=== PATIENT | female | born 1990 | race Caucasian/White ===

== ENCOUNTER 2016-04-17 12:25 | Emergency (ER) | payer MEDICAID ==
[~2016-04-17] VITALS: Ht 170.2 cm; Wt 88.0 kg
[~2016-04-17 12:25] MED LIST: PRENCAP17 PO
[2016-04-17 12:47] VITALS: BP 126/83; PULSE 107; RESP 16; TEMP 98.7; O2SAT 98
[2016-05-26] MEDS ORDERED: ZOLO50TA PO (11:18)
[2016-05-26] MEDS ORDERED: SERT-132 PO (11:18)
== END 2016-04-17 13:30 | disposition left against medical advice (07) ==
LOC: PHED 12:25
DX: O26.893 Other specified pregnancy related conditions, third trimester (principal); R10.30 Lower abdominal pain, unspecified; Z3A.36 36 weeks gestation of pregnancy; Z53.21 Procedure and treatment not carried out due to patient leaving prior to being seen by health care provider
CPT/HCPCS: 99281

== ENCOUNTER 2016-04-17 14:03 | Emergency (ER) | payer MEDICAID ==
--- NOTE | 2016-04-17 14:40 | PD ---
HPI Chief Complaint cramping Date Seen: Apr 17, 2016 Travel History International Travel<30 Days: No Contact w/Intl Traveler<30Days: No Known Affected Area: No History of Present Illness HPI 25yo at 36 weeks gestation c/o pelvic cramping. Irregular, since this morning, mild, better when decreases activity Para: 0 : 1 History Past Medical History Medical History: Denies Significant Hx Past Surgical History Surgical History: No Previous Surgery Family History Family History: Negative Social History Alcohol Use: No Tobacco Use: Yes (stopped in first trimester) Substance Abuse: No Allergies-Medications (Allergen,Severity, Reaction): Coded Allergies: Nonsteroidal Anti-Inflammatory Agts (Verified Allergy, Unknown, 04/13/16) Home Meds Reported Medications Without A W/ Fe Carbo (Prenate Mini 29-0.6-0.4-350 mg)1 Cap Cap Po 02/15/16 Review of Systems Except as stated in HPI: all other systems reviewed are Neg Physical Exam Narrative GENERAL: Well-nourished, well-developed patient. SKIN: Warm and dry. HEAD: Normocephalic and atraumatic. EYES: No scleral icterus. No injection or drainage. ENT: No nasal drainage noted. Mucous membranes pink. Airway patent. NECK: Supple, trachea midline. No JVD. CARDIOVASCULAR: Regular rate and rhythm without murmurs, gallops, or rubs. RESPIRATORY: Breath sounds equal bilaterally. No accessory muscle use. BREASTS: Bilateral exam showed no masses , no retractions, no nipple discharge. ABDOMEN/GI: Abdomen soft, non-tender, bowel sounds present, no rebound, no guarding Gravid to [-] weeks size Fundal Height: [-]36 GENITOURINARY: External Genitalia: intact and normal in appearance BUS glands: [-] Cervix: [-]posterior Dilatation: [-] closed Effacement: [-]50 Station: [-] -3 Presentation: [-]vertex Membranes: [intact or ruptured]intact Uterine Contractions: [-]none per toco FHT's: Category: [-] 1 Baseline: [-] 145 Reactive: [-] mod Variability: [-] mod, accels present Decels: [-] absent EXTREMITIES: No cyanosis or edema. BACK: Nontender without obvious deformity. No CVA tenderness. NEUROLOGICAL: Awake and alert. Motor and sensory grossly within normal limits. Five out of 5 muscle strength in all muscle groups. Normal speech. Data Data Vital Signs Reviewed: Yes MDM Plan false labor, pelvic pressure follow up as directed in 2 days Diagnosis Diagnosis: Primary Impression: False labor before 37 completed weeks of gestation during in third trimester, antepartum Additional Impression: 36 weeks gestation of Disposition: 01 DISCHARGE HOME Poly Chery MD Apr 17, 2016 14:40
[2016-05-26] MEDS ORDERED: ZOLO50TA PO (11:18)
[2016-05-26] MEDS ORDERED: SERT-132 PO (11:18)
== END 2016-04-17 15:02 | disposition home or self-care (01) ==
LOC: HOBED 14:07
DX: O47.03 False labor before 37 completed weeks of gestation, third trimester (principal); Z3A.36 36 weeks gestation of pregnancy
CPT/HCPCS: 59025

== ENCOUNTER 2016-05-03 12:58 | Emergency (ER) | payer MEDICAID ==
[2016-05-03 13:24] VITALS: BP 125/77; PULSE 85; RESP 20; TEMP 98.2
[2016-05-03 14:02] LABS: BACTERIA, URINE RARE /hpf; BLOOD, URINE NEG (NEG); COMMENT (UR) CULT NOT INDICATED; CULTURE IF INDICATED CULT NOT INDICATED; GLUCOSE,URINE NEG (NEG); KETONE, URINE NEG (NEG); MUCUS URINE FEW /lpf (OCC); NITRITE,URINE NEG (NEG); SQUAMOUS EPITHELIAL CELL URINE <1 /hpf (0-5); URINE COLOR YELLOW (YELLW/STRAW)
--- NOTE | 2016-05-03 14:27 | PD ---
HPI Chief Complaint Lower abdominal, lower back cramping Date Seen: May 03, 2016 Time Seen: 13:30 (Kimberlee Hoffman MD R1) Travel History International Travel<30 Days: No Contact w/Intl Traveler<30Days: No Known Affected Area: No (Kimberlee Hoffman MD R1) History of Present Illness HPI Patient is a 25-year-old at 38 and 2/7 weeks gestation today. She presents to the OB ED with lower back pain and lower abdominal pain radiating to the groin, starting at 9:30 today. She states they feel that contractions but the last 30 minutes at a time and are sporadic. Had 2-3 episodes today. She also endorses having a headache since Sunday, improved with Tylenol. She does not feel that she is hydrated is, stating she thinks 34 pints of water daily. Her headache persisted right now and is mild. Denies having chronic headaches or other medical conditions. She has had vomiting and poor sleep to some type . care has been per patient report uncomplicated. She denies leakage of fluid, vaginal bleeding, and contractions. She feels baby moving regularly. She denies FLOYD/N/V/D/fever/sick contacts/SOB/calf pain/ dizziness/seeing spots. She is a patient of [facility]. (Kimberlee Hoffman MD R1) History Past Medical History Medical History: Denies Significant Hx (Kimberlee Hoffman MD R1) Obstetric History Obstetric History G1: Elective 9 weeks by oral abortive medication G2: Present (Kimberlee Hoffman MD R1) Past Surgical History Surgical History: No Previous Surgery (Kimberlee Hoffman MD R1) Family History Family History: Negative (Kimberlee Hoffman MD R1) Social History Alcohol Use: No Tobacco Use: No (quit at 6 weeks gestation) Substance Abuse: No (Kimberlee Hoffman MD R1) Allergies-Medications (Allergen,Severity, Reaction): Coded Allergies: Nonsteroidal Anti-Inflammatory Agts (Verified Allergy, Severe, Hives, SOB , 05/01/16) Home Meds Reported Medications Without A W/ Fe Carbo (Prenate Mini 29-0.6-0.4-350 mg)1 Cap Cap Po 02/15/16 Review of Systems Except as stated in HPI: all other systems reviewed are Neg (Kimberlee Hoffman MD R1) Physical Exam Vital Signs Date Time Temp Pulse Resp B/P Pulse Ox O2 Delivery O2 Flow Rate FiO2 05/03/16 13:24 98.2 85 20 125/77 Narrative GENERAL: Well-nourished, well-developed patient. SKIN: Warm and dry. HEAD: Normocephalic and atraumatic. EYES: No scleral icterus. No injection or drainage. ENT: No nasal drainage noted. Mucous membranes pink. Airway patent. NECK: Supple, trachea midline. No JVD. CARDIOVASCULAR: Regular rate and rhythm without murmurs, gallops, or rubs. RESPIRATORY: Breath sounds equal bilaterally. No accessory muscle use. BREASTS: Bilateral exam showed no masses , no retractions, no nipple discharge. ABDOMEN/GI: Abdomen gravid to 38 weeks, non-tender, bowel sounds present, no rebound, no guarding GENITOURINARY: Cervix: 0-1/80%/-2 External Genitalia: intact and normal in appearance Uterine Contractions: Absent FHT's: Category: 1 Baseline: 130 Reactive: Yes Variability: Moderate Decels: Absent EXTREMITIES: No cyanosis or edema. BACK: Nontender without obvious deformity. No CVA tenderness. NEUROLOGICAL: Awake and alert. Motor and sensory grossly within normal limits. Five out of 5 muscle strength in all muscle groups. Normal speech. (Kimberlee Hoffman MD R1) Data Data Vital Signs Reviewed: Yes Orders Vital Signs (Adult) .ON ADMISSION (05/03/16 13:05) ^ Labor Status (05/03/16 13:05) Urinalysis - C+S If Indicated (05/03/16 13:05) ^ Hydration (05/03/16 13:05) Us Ob Bpp Wo Nst (05/03/16 ) Labs Laboratory Tests Test 05/03/16 13:10 Urine Color YELLOW Urine Turbidity CLEAR Urine pH 7.0 Urine Specific [place] 1.018 Urine Protein TRACE Urine Glucose (UA) NEG Urine Ketones NEG Urine Occult Blood NEG Urine Nitrite NEG Urine Bilirubin NEG Urine Urobilinogen LESS THAN 2.0 Urine Leukocyte Esterase SMALL Urine RBC 1 Urine WBC 1 Urine Squamous Epithelial <1 Cells Urine Bacteria RARE Urine Mucus FEW Microscopic Urinalysis Comment CULT NOT INDICATED (Kimberlee Hoffman MD R1) MDM Medical Record Reviewed: Yes Narrative Course / MDM 25-year-old at 38 and 2/7 weeks gestation today presenting for labor check. Intrauterine : Category 1 tracing Cervix: 0-1/80%/-2 Unofficial report for Ultrasound: BPP 12/12 Patient to be discharged home Counseled on use of Tylenol as needed for round ligament pain Continue routine care with [facility] Discussed with Dr. Oquendo (Kimberlee Hoffman MD R1) Diagnosis Diagnosis: Primary Impression: 38 weeks gestation of Additional Impression: Round ligament pain Disposition: DISCHARGE HOME Condition: Stable Patient Instructions: Abdominal Pain in (ED), General Instructions Addendum Remarks I rounded on the patient. I rounded with the resident. I reviewed the resident' s assessment and plan of care for this patient. I am in agreement with the plan of care for this patient. (Marleen Leon MD) Kimberlee Hoffman MD R1 May 03, 2016 14:27 Marleen Leon MD May 03, 2016 15:15
[2016-05-26] MEDS ORDERED: SERT-132 PO (11:18)
[2016-05-26] MEDS ORDERED: ZOLO50TA PO (11:18)
== END 2016-05-03 14:42 | disposition home or self-care (01) ==
LOC: HOBED 12:58
DX: O26.893 Other specified pregnancy related conditions, third trimester (principal); R10.2 Pelvic and perineal pain; M54.5 Low back pain; R51 Headache; Z87.891 Personal history of nicotine dependence; Z3A.38 38 weeks gestation of pregnancy
CPT/HCPCS: 76816; 76819; 81001

== ENCOUNTER 2016-05-07 19:09 | Emergency (ER) | payer MEDICAID ==
[~2016-05-07] VITALS: Ht 170.2 cm; Wt 88.5 kg
--- NOTE | 2016-05-07 19:54 | PD ---
HPI Chief Complaint Lower abdominal low back pain Date Seen: May 07, 2016 Travel History International Travel<30 Days: No Contact w/Intl Traveler<30Days: No Known Affected Area: No History of Present Illness HPI The patient is a 25 white female at 39 weeks tomorrow presents combining of lower abdominal pain and groin pain and low back pain no bleeding or leakage of fluid, heart rate tracing is reactive, no regular contractions seen just uterine irritability Para: 0 : 2 : 1 History Obstetric History Obstetric History 1 loss early Social History Alcohol Use: No Tobacco Use: No Substance Abuse: No Allergies-Medications (Allergen,Severity, Reaction): Coded Allergies: Nonsteroidal Anti-Inflammatory Agts (Verified Allergy, Severe, Hives, SOB , 05/01/16) Home Meds Reported Medications Without A W/ Fe Carbo (Prenate Mini 29-0.6-0.4-350 mg)1 Cap Cap Po 02/15/16 Review of Systems General / Constitutional: No: Fever, Weight Gain, Chills, Other Eyes: No: Diploplia, Blurred Vision, Visual changes, Pain, Photophobia HENT: No: Headaches, Vertigo, Lightheadedness Cardiovascular: No: Irregular Rhythm, Chest Pain or Discomfort, Palpitations, Tachycardia, Syncope, Varicosities, Edema, Cyanosis Respiratory: No: Cough, Short of Breath, Other Gastrointestinal: No: Nausea, Vomiting, Diarrhea Genitourinary: No: Decreased Urinary Output, Oliguria Musculoskeletal: No: Limited ROM, Weakness, Cramping, Edema, Pain Skin: No Rash, No Itching, No Dryness, No Lumps, No Change in Pigmentation, No Change in Nails, No Alopecia, No Lesions Neurologic: No: Weakness, Dizziness, Syncope, Focal Abnormalities, Coordination Problem, Headache, Slurred Speech, Seizures Psychiatric: No: Depression, Suicidal Ideations, Homicidal Ideation Endocrine: No: Heat Intolerance, Cold Intolerance, Polydipsia, Polyuria, Other Physical Exam Narrative GENERAL: Well-nourished, well-developed patient. SKIN: Warm and dry. HEAD: Normocephalic and atraumatic. EYES: No scleral icterus. No injection or drainage. ENT: No nasal drainage noted. Mucous membranes pink. Airway patent. NECK: Supple, trachea midline. No JVD. CARDIOVASCULAR: Regular rate and rhythm without murmurs, gallops, or rubs. RESPIRATORY: Breath sounds equal bilaterally. No accessory muscle use. BREASTS: Bilateral exam showed no masses , no retractions, no nipple discharge. ABDOMEN/GI: Abdomen soft, non-tender, bowel sounds present, no rebound, no guarding Gravid to [38-] weeks size Fundal Height: [38-] GENITOURINARY: External Genitalia: intact and normal in appearance BUS glands: [-] Cervix: [-] Dilatation: [1-] Effacement: [50-] Station: [-3] Presentation: [vtx-] Membranes: [intact ] Uterine Contractions: [ no contraction is just irritability-] FHT's: Category: [1-] Baseline: [-144] Reactive: [-yes] Variability: [-mod] Decels: [none-] EXTREMITIES: No cyanosis or edema. BACK: Nontender without obvious deformity. No CVA tenderness. NEUROLOGICAL: Awake and alert. Motor and sensory grossly within normal limits. Five out of 5 muscle strength in all muscle groups. Normal speech. Data Data Orders Meperidine Inj (Demerol Inj) (05/07/16 20:00) MDM Interpretation(s) Patient 25-year-old white female now at 39 weeks tomorrow presents complaining of lower abdominal pain and low back pain contractions bleeding or rupture the membranes heart rate tracing is reactive and there are no regular contractions she is uterine irritability , cervix is fingertip to 1 cm 50% posterior Plan Plan to give patient Demerol 50 mg with 5 mg of Phenergan IM pain relief home bedrest use Tylenol liberally drink plenty of fluids stay in bed using a heating pad on the painful areas are soak in hot bath, and follow-up with her OB provider [facility] Diagnosis Diagnosis: Primary Impression: Round ligament pain Disposition: 01 DISCHARGE HOME Condition: Stable Gideon Blanco II, MD May 07, 2016 19:54
[2016-05-07] MEDS ORDERED: MEPERIDINE HCL 50 MG/ML VIAL IM ONE (20:00)
[2016-05-07] MEDS ORDERED: PROMETHAZINE INJ 25 MG/ML VIAL IM ONE (20:00)
[2016-05-26] MEDS ORDERED: SERT-132 PO (11:18)
[2016-05-26] MEDS ORDERED: ZOLO50TA PO (11:18)
== END 2016-05-07 20:30 | disposition home or self-care (01) ==
LOC: HOBED 19:09
DX: O26.893 Other specified pregnancy related conditions, third trimester (principal); R10.2 Pelvic and perineal pain; Z3A.39 39 weeks gestation of pregnancy
CPT/HCPCS: 59025; 96372; 99284; J2175; J2550

== ENCOUNTER 2016-05-10 12:13 | Emergency (ER) | payer MEDICAID ==
--- NOTE | 2016-05-10 13:10 | PD ---
HPI Chief Complaint Bloody vaginal discharge this morning Date Seen: May 10, 2016 Time Seen: 13:06 Travel History International Travel<30 Days: No Contact w/Intl Traveler<30Days: No Known Affected Area: No History of Present Illness HPI 25-year-old white female who is at 39 weeks 2 days and the patient of [facility]. Patient denies any medical or surgical issues during this and she was checked yesterday. Cervix was 2 cm on exam yesterday and she woke up this morning with mucousy discharge with some blood in it. Patient denies abdominal pain she denies bright red blood vaginal bleeding. Para: 0 : 1 History Past Medical History Medical History: Denies Significant Hx Past Surgical History Surgical History: No Previous Surgery Family History Family History: Negative Social History Alcohol Use: No Tobacco Use: No Substance Abuse: No Allergies-Medications (Allergen,Severity, Reaction): Coded Allergies: Nonsteroidal Anti-Inflammatory Agts (Verified Allergy, Severe, Hives, SOB , 05/09/16) Home Meds Reported Medications Without A W/ Fe Carbo (Prenate Mini 29-0.6-0.4-350 mg)1 Cap Cap Po 02/15/16 Review of Systems Except as stated in HPI: all other systems reviewed are Neg Physical Exam Narrative GENERAL: Well-nourished, well-developed patient. SKIN: Warm and dry. HEAD: Normocephalic and atraumatic. EYES: No scleral icterus. No injection or drainage. ENT: No nasal drainage noted. Mucous membranes pink. Airway patent. NECK: Supple, trachea midline. No JVD. CARDIOVASCULAR: Regular rate and rhythm without murmurs, gallops, or rubs. RESPIRATORY: Breath sounds equal bilaterally. No accessory muscle use. BREASTS: Bilateral exam showed no masses , no retractions, no nipple discharge. ABDOMEN/GI: Abdomen soft, non-tender, bowel sounds present, no rebound, no guarding Gravid to [-38] weeks size Fundal Height: [-] GENITOURINARY: External Genitalia: intact and normal in appearance BUS glands: [-] Cervix: [-Posterior] Dilatation: [-2] Effacement: [50-] Station: [--3] Presentation: [-Vertex] Membranes: [intact or ruptured] Uterine Contractions: [-Occasional] FHT's: Category: [-1] Baseline: [140 reactive-] Reactive: [-] Variability: [-Moderate] Decels: [Absent-] EXTREMITIES: No cyanosis or edema. BACK: Nontender without obvious deformity. No CVA tenderness. NEUROLOGICAL: Awake and alert. Motor and sensory grossly within normal limits. Five out of 5 muscle strength in all muscle groups. Normal speech. MDM Medical Record Reviewed: No Plan 25-year-old at 39 weeks gestation who has some mild bloody show noted on examination. No signs of labor and no contractions on exam. No signs of bright red vaginal bleeding. Patient will be discharged and can follow back up with her provider next week Diagnosis Diagnosis: Primary Impression: Bloody vaginal discharge Additional Impression: 39 weeks gestation of Disposition: DISCHARGE HOME Poly Chery MD May 10, 2016 13:10
[2016-05-26] MEDS ORDERED: ZOLO50TA PO (11:18)
[2016-05-26] MEDS ORDERED: SERT-132 PO (11:18)
== END 2016-05-10 15:38 | disposition home or self-care (01) ==
LOC: HOBED 12:13
DX: N89.8 Other specified noninflammatory disorders of vagina (principal); O26.93 Pregnancy related conditions, unspecified, third trimester; Z3A.39 39 weeks gestation of pregnancy
CPT/HCPCS: 99283

== ENCOUNTER 2016-05-14 01:02 | Inpatient (IN) | payer MEDICAID ==
[~2016-05-14] VITALS: Ht 170.2 cm; Wt 90.0 kg
[2016-05-14] VITALS (54 sets, daily range): BP systolic 95–153; BP diastolic 46–88; PULSE 60–94; RESP 15–20; TEMP 97.8–98.1
--- NOTE | 2016-05-14 01:36 | PD ---
HPI Chief Complaint contractions Date Seen: May 14, 2016 Travel History International Travel<30 Days: No Contact w/Intl Traveler<30Days: No Known Affected Area: No History of Present Illness HPI Ms. Israel is a 25 yo G1 at an estimated 39 6/7 weeks (JOO 05/15/2016) presents with complaint of contractions. Patient states the contractions started approximately 1.5 hours ago; due to the severity of her pain and the advice of family members she saw emergency services and was brought by [facility] to [facility] ED. Patient denies vaginal bleeding or known loss of vaginal fluid. Patient states contractions approximately 2 minutes apart and are associated with significant lower back pain. Patient does not report headaches, vision changes , nausea/vomiting, dysuria, calf pain, or other symptoms at this time. Per review of records, patient is GBS negative. Patient smoked early in but quit upon learning she was . ultrasounds without abnormality. : 1 History Past Medical History Narrative Medical Tobacco abuse History of ASCUS on Pap 12/2015 Obstetric History Obstetric History G1 Unremarkable course Past Surgical History Surgical History: No Previous Surgery Family History Family History: Negative Social History Alcohol Use: No Tobacco Use: Yes (quit smoking upon learning she was ) Substance Abuse: No Allergies-Medications (Allergen,Severity, Reaction): Coded Allergies: Nonsteroidal Anti-Inflammatory Agts (Verified Allergy, Severe, Hives, SOB , 05/09/16) Home Meds Reported Medications Without A W/ Fe Carbo (Prenate Mini 29-0.6-0.4-350 mg)1 Cap Cap Po 02/15/16 Review of Systems General / Constitutional: No: Fever, Chills Eyes: No: Blurred Vision HENT: No: Headaches Cardiovascular: No: Chest Pain or Discomfort Respiratory: No: Short of Breath Gastrointestinal: No: Nausea, Vomiting Genitourinary: No: Urgency, Dysuria Skin: No Rash Psychiatric: No: Anxiety Physical Exam HR 86 BP 132/77 T 97.8 RR 18 Narrative GENERAL: Well-nourished, well-developed patient. SKIN: Warm and dry. HEAD: Normocephalic and atraumatic. EYES: No scleral icterus. No injection or drainage. ENT: No nasal drainage noted. Mucous membranes pink. Airway patent. NECK: Supple, trachea midline. No JVD. CARDIOVASCULAR: Regular rate and rhythm without murmurs. RESPIRATORY: CTAB, normal rate EXTREMITIES: No cyanosis or edema. NEUROLOGICAL: Awake and alert. Motor and sensory function grossly within normal limits. ABDOMEN/GI: Abdomen soft, non-tender, bowel sounds present, no rebound, no guarding Gravid GENITOURINARY: External Genitalia: intact and normal in appearance Cervix: Dilatation: 4 Effacement: 100% Station: -2 Presentation: V Membranes: Intact Uterine Contractions: Y q2-3 min FHT's: Category: 1 Baseline: 130 Reactive: Y Variability: Moderate Decels: None Data Data Vital Signs Reviewed: Yes MDM Medical Record Reviewed: Yes Narrative Course / MDM 25 yo G1 at an estimated 39 6/7 weeks (JOO 05/15/2016) Assessment: Category 1 rhythm Cervix 4/100%/-2; progressed from 3/90%/-2 Contractions every 3 minutes GBS negative Plan: We'll plan to admit for labor as patient making cervical change Continue to monitor EFM We'll consider ROM for labor augmentation We'll consider IUPC if needed to contraction strength/frequency UA, CBC, blood typing ordered Patient requests epidural Piotr Mae MD R2 May 14, 2016 01:36
[2016-05-14] MEDS ORDERED: MINERAL OIL 10 ML VIAL TOPICAL PRN (01:45)
[2016-05-14] MEDS ORDERED: OXYTOCIN 30 UNITS-500ML PREMIX 500 ML IV ONE (01:45)
[2016-05-14] MEDS ORDERED: LACTATED RINGER'S 1000 ML INJ 1,000 ML IV PRN (01:45)
[2016-05-14] MEDS ORDERED: LIDOCAINE HCL 1% 50 ML VIAL INFIL PRN (01:45)
[2016-05-14] MEDS ORDERED: SODIUM CHLORID 0.9% 500 ML INJ 500 ML IV PRN (01:45)
[2016-05-14] MEDS ORDERED: LIDOCAINE HCL 1% 50 ML VIAL I-DERMAL PRN (01:45)
[2016-05-14] MEDS ORDERED: CITRIC ACID-SODIUM CITRATE LIQ 30 ML UDC PO SCH (01:45)
--- NOTE | 2016-05-14 01:49 | HHI.HP ---
HPI Chief Complaint Contraction pain Date Seen: May 14, 2016 Travel History International Travel<30 Days: No Contact w/Intl Traveler<30Days: No Known Affected Area: No History of Present Illness HPI Patient is 25-year-old white female now at 39 weeks 6 days patient of [facility] presents quite contractions that are regular and painful for the last several hours. Denies bleeding or rupture the membranes. heart rate tracing is reactive and she is seble every 3 minutes Para: 0 : 2 History Obstetric History Obstetric History 1 early loss Social History Alcohol Use: No Tobacco Use: No Substance Abuse: No Allergies-Medications (Allergen,Severity, Reaction): Coded Allergies: Nonsteroidal Anti-Inflammatory Agts (Verified Allergy, Severe, Hives, SOB , 05/09/16) Home Meds Reported Medications Without A W/ Fe Carbo (Prenate Mini 29-0.6-0.4-350 mg)1 Cap Cap Po 02/15/16 Review of Systems General / Constitutional: No: Fever, Weight Gain, Chills, Other Eyes: No: Diploplia, Blurred Vision, Visual changes, Pain, Photophobia HENT: No: Headaches, Vertigo, Lightheadedness Cardiovascular: No: Irregular Rhythm, Chest Pain or Discomfort, Palpitations, Tachycardia, Syncope, Varicosities, Edema, Cyanosis Respiratory: No: Cough, Short of Breath, Other Gastrointestinal: No: Nausea, Vomiting, Diarrhea Genitourinary: No: Decreased Urinary Output, Oliguria Musculoskeletal: No: Limited ROM, Weakness, Cramping, Edema, Pain Skin: No Rash, No Itching, No Dryness, No Lumps, No Change in Pigmentation, No Change in Nails, No Alopecia, No Lesions Neurologic: No: Weakness, Dizziness, Syncope, Focal Abnormalities, Coordination Problem, Headache, Slurred Speech, Seizures Psychiatric: No: Depression, Suicidal Ideations, Homicidal Ideation Endocrine: No: Heat Intolerance, Cold Intolerance, Polydipsia, Polyuria, Other Physical Exam Narrative GENERAL: Well-nourished, well-developed patient. SKIN: Warm and dry. HEAD: Normocephalic and atraumatic. EYES: No scleral icterus. No injection or drainage. ENT: No nasal drainage noted. Mucous membranes pink. Airway patent. NECK: Supple, trachea midline. No JVD. CARDIOVASCULAR: Regular rate and rhythm without murmurs, gallops, or rubs. RESPIRATORY: Breath sounds equal bilaterally. No accessory muscle use. BREASTS: Bilateral exam showed no masses , no retractions, no nipple discharge. ABDOMEN/GI: Abdomen soft, non-tender, bowel sounds present, no rebound, no guarding Gravid to [39-] weeks size Fundal Height: [-38] GENITOURINARY: External Genitalia: intact and normal in appearance BUS glands: [-] Cervix: [-] Dilatation: [-4] Effacement: [-100] Station: [-2] Presentation: [vtx-] Membranes: [intact bulging] Uterine Contractions: [-reg] FHT's: Category: [1-] Baseline: [-144] Reactive: [yes-] Variability: [mod-] Decels: [-none] EXTREMITIES: No cyanosis or edema. BACK: Nontender without obvious deformity. No CVA tenderness. NEUROLOGICAL: Awake and alert. Motor and sensory grossly within normal limits. Five out of 5 muscle strength in all muscle groups. Normal speech. Assessment/Plan Assessment and Plan This patient is 25-year-old white female at 39 weeks who presents in early labor cervix 4 cm 100% efface and -2 station vertex bulging bag water heart rate tracing is reactive, CTXs regular Plan to admit the patient for labor management augmentation and anticipate vaginal delivery Gideon Blanco II, MD May 14, 2016 01:49
[2016-05-14] MEDS ORDERED: SODIUM CHLOR 0.9% 1000 ML INJ 1,000 ML IV PRN (02:05)
[2016-05-14] MEDS: LACTATED RINGER'S 1000 ML INJ 1,000 ML IV SCH ×2 (03:36→08:15)
[2016-05-14 03:43] LABS: AUTOMATED NEUTROPHIL # 17.6 TH/MM3 (1.8-7.7); BASOPHIL # 0.1 TH/MM3 (0-0.2); BASOPHIL % 0.2 % (0.0-2.0); EOSINOPHIL # 0.1 TH/MM3 (0-0.4); EOSINOPHIL % 0.5 % (0.0-4.0); HEMATOCRIT 34.5 % (35.0-46.0); HEMO FLAGS DIFF FINAL; LYMPH % 14.7 % (9.0-44.0); LYMPHOCYTE # 3.4 TH/MM3 (1.0-4.8); MEAN CELL VOLUME 88.4 FL (80.0-100.0); MEAN CORPUSCULAR HEMOGLOBIN 29.9 PG (27.0-34.0); MEAN CORPUSCULAR HGB CONC 33.8 % (32.0-36.0); MONO % 7.9 % (0.0-8.0); NEUT % 76.7 % (16.0-70.0); PLATELET COUNT 256 TH/MM3 (150-450)
[2016-05-14 03:54] LABS: BACTERIA, URINE RARE /hpf; BLOOD, URINE NEG (NEG); GLUCOSE,URINE NEG (NEG); KETONE, URINE NEG (NEG); MUCUS URINE FEW /lpf (OCC); NITRITE,URINE NEG (NEG); PH, URINE 7.5 (5.0-8.5); SQUAMOUS EPITHELIAL CELL URINE 1 /hpf (0-5); URINE COLOR YELLOW (YELLW/STRAW)
[2016-05-14 03:56] LABS: COMMENT (UR) CULT NOT INDICATED; CULTURE IF INDICATED CULT NOT INDICATED
[2016-05-14] MEDS ORDERED: fentaNYL 2MCG-BUPIV 0.125% INJ 100 ML ONE (04:01)
[2016-05-14] MEDS ORDERED: ePHEDrine/NS 25 MG/5 ML SYR ONE (04:02)
--- NOTE | 2016-05-14 06:19 | PD.LABORPN ---
Subjective Subjective Mrs. Israel is doing well at this time; no complaints. Objective Vital Signs Vital Signs Date Time Temp Pulse Resp B/P Pulse Ox O2 Delivery O2 Flow Rate FiO2 05/14/16 05:55 76 05/14/16 05:50 73 05/14/16 05:50 72 05/14/16 05:46 72 121/62 05/14/16 05:45 75 05/14/16 05:45 80 05/14/16 05:40 74 05/14/16 05:40 81 05/14/16 05:35 83 05/14/16 05:35 85 05/14/16 05:30 80 106/54 05/14/16 05:30 79 05/14/16 05:20 77 05/14/16 05:15 76 127/71 05/14/16 04:55 74 135/88 05/14/16 04:55 78 05/14/16 04:55 75 05/14/16 04:50 75 136/82 05/14/16 04:50 76 05/14/16 04:45 75 05/14/16 04:45 80 05/14/16 04:45 79 133/77 05/14/16 04:40 74 05/14/16 04:40 72 126/80 05/14/16 04:40 75 05/14/16 04:38 74 130/85 05/14/16 04:35 75 05/14/16 04:30 81 Objective Pelvic Exam: Cervix: Dilatation: 4 Effacement: 90% Station: -1 Presentation: V Membranes: Intact Uterine Contractions: q3-4min FHT's: Category:1 Baseline: 120 Reactive: Y Variability: Moderate Decels: None Assessment/Plan Problem List: (1) 39 weeks gestation of Assessment and Plan 25 yo G1 at an estimated 39 6/7 weeks (JOO 05/15/2016) Assessment: -Category 1 rhythm -Cervix: 4/90%; Lack of significant cervical change from last exam -Contractions poorly picked up on EFM -Epidural administered Plan: -SROM performed at 0610; clear fluid noted -IUPC inserted following SROM -Will use to guide Pitocin administration -Will initiate Pitocin for labor augmentation Piotr Mae MD R2 May 14, 2016 06:19
[2016-05-14] MEDS ORDERED: OXYTOCIN 30 UNITS-500ML PREMIX 500 ML IV SCH (06:30)
[2016-05-14] MEDS ORDERED: ePHEDrine/NS 25 MG/5 ML SYR IV PRN (07:00)
[2016-05-14] MEDS ORDERED: DO NOT ADMINISTER ANTICOAGULANTS XX PRN (07:00)
[2016-05-14] MEDS ORDERED: fentaNYL 2MCG-BUPIV 0.125% 100 ML EPIDURAL SCH (07:00)
[2016-05-14] MEDS ORDERED: NO SYSTEM NARCOTICS XX PRN (07:00)
[2016-05-14] MEDS ORDERED: SODIUM CHLORIDE 0.9% FLUSH 5 ML FLUSH IV PRN (09:00)
[2016-05-14] MEDS ORDERED: ZOLPIDEM TARTRATE 5 MG TAB PO PRN (09:00)
[2016-05-14] MEDS ORDERED: WITCH HAZEL 50%/GLYCERIN 12.5% 40 PAD JAR TOPICAL PRN (09:00)
[2016-05-14] MEDS ORDERED: DOCUSATE SODIUM 50 MG/SENNA 8.6 MG TAB PO PRN (09:00)
[2016-05-14] MEDS ORDERED: ALUMINUM/MAGNESIUM/SIMETH 30 ML CUP PO PRN (09:00)
[2016-05-14] MEDS ORDERED: ONDANSETRON ODT 4 MG TAB PO PRN (09:00)
[2016-05-14] MEDS ORDERED: SODIUM CHLORIDE 0.9% FLUSH 5 ML FLUSH IV SCH (09:00)
[2016-05-14] MEDS ORDERED: ACETAMINOPHEN 325 MG TAB PO PRN (09:00)
[2016-05-14] MEDS ORDERED: BENZOCAINE 20% TOPICAL SPRAY 60 ML CAN TOPICAL PRN (09:00)
[2016-05-14] MEDS ORDERED: IBUPROFEN 600 MG TAB PO PRN (09:00)
--- NOTE | 2016-05-14 09:26 | PD.OB.DELI ---
Anesthesia: Epidural Episiotomy: None Vaginal Delivery: Normal Presentation: Occiput anterior Nuchal Cord: None Delayed cord clamping (45 sec): No Infant: Male One Minute : 4 Five Minute : 7 Weight: 3485 gm Infant Care: Suctioned, Spontaneous crying, Responded to stimulation, Blow-by O2 delivered Placenta: Spontaneous delivery, Manual removal, Intact, Uterus explored + Laceration: No lacerations Gideon Blanco II, MD May 14, 2016 09:26
[2016-05-14] MEDS ORDERED: DIPHTH/TETANUS/ACEL PERTUSSIS (BOOSTER) 0.5 ML VIAL/PFS IM ONE (16:00)
[2016-05-14] MEDS ORDERED: MEASLES, MUMPS, RUBELLA VACCINE 0.5 ML VIAL SQ ONE (16:00)
[2016-05-14] MEDS: oxyCODONE/ACETAMINOPHEN 5 MG/325 MG TAB PO PRN (19:24)
[2016-05-15] MEDS: oxyCODONE/ACETAMINOPHEN 5 MG/325 MG TAB PO PRN ×2 (01:54→13:52)
[2016-05-15 05:00] VITALS: BP 118/81; PULSE 69; RESP 18; TEMP 98
[2016-05-15 08:00] VITALS: BP 121/83; PULSE 62; RESP 16; TEMP 98.1
--- NOTE | 2016-05-15 08:26 | HHI.OB ---
Subjective Post Day: 1 Remarks Patient seen and examined this morning. No acute events overnight. AF. BP 153/ 80 overnight, otherwise within normal limits. She states her pain is improving. Minimal vaginal bleeding. Deneis breast tenderness. She states she is and without issues thus far. No issues ambulating. Still considering options regarding contraception. (Savage Rosenthal MD R1) Objective Vitals/I&O Vital Signs Date Time Temp Pulse Resp B/P Pulse Ox O2 Delivery O2 Flow Rate FiO2 05/15/16 08:00 98.1 16 121/83 05/15/16 05:00 98.0 69 18 118/81 05/14/16 19:22 97.8 05/14/16 19:22 73 20 153/80 05/14/16 11:05 98.1 86 16 116/69 05/14/16 10:30 70 116/63 05/14/16 10:16 18 05/14/16 10:16 83 102/85 05/14/16 10:00 67 116/64 05/14/16 10:00 18 05/14/16 09:58 69 121/69 05/14/16 09:39 18 05/14/16 09:31 84 123/72 05/14/16 09:25 98.1 05/14/16 09:12 84 15 133/75 05/14/16 09:00 18 Objective Remarks GENERAL: Well-nourished, well-developed patient. CARDIOVASCULAR: Regular rate and rhythm without murmurs, gallops, or rubs. RESPIRATORY: Breath sounds equal bilaterally. No accessory muscle use. ABDOMEN/GI: Abdomen soft, non-tender. Fundus: Firm, non-tender at umbilicus. GENITOURINARY: Light to moderate bleeding. EXTREMITIES: No cyanosis or edema, non-tender, without signs of DVT. Medications and IVs Current Medications Medications (Trade) Dose Ordered Sig/Jaylene Route Start Time Stop Time Status Last Admin Lactated Ringer's 1,000 ml @ 125 mls/hr Q8H IV 05/14/16 01:45 05/14/16 08:15 Lactated Ringer's 1,000 ml @ 3,000 mls/hr Q20M PRN IV 05/14/16 01:45 (NS 1000 ml Inj) 1,000 ml @ 100 mls/hr Q10H PRN IV 05/14/16 02:05 (fentaNYL INJ) 50 mcg Q1H PRN IV PUSH 05/14/16 01:45 (fentaNYL INJ) 100 mcg Q1H PRN IV PUSH 05/14/16 01:45 05/14/16 03:35 Mineral Oil 10 ml 10 ml UNSCH PRN TOPICAL 05/14/16 01:45 Oxytocin 500 ml @ 0 mls/hr TITRATE IV 05/14/16 06:30 05/14/16 06:57 (fentaNYL 2MCG-BUPIV 0.125% INJ) 100 ml @ 0 mls/hr TITRATE EPIDURAL 05/14/16 07:00 (NS Flush) 2 ml BID IV 05/14/16 09:00 (NS Flush) 2 ml UNSCH PRN IV 05/14/16 09:00 (Tylenol) 650 mg Q4H PRN PO 05/14/16 09:00 (Percocet 5-325 Mg) 1 tab Q4H PRN PO 05/14/16 09:00 05/15/16 01:54 (Americaine 20% Top Spr) 1 spray Q4H PRN TOPICAL 05/14/16 09:00 (Tucks Pads) 1 applic QID PRN TOPICAL 05/14/16 09:00 (Mery-Colace) 2 tab Q12H PRN PO 05/14/16 09:00 (Ambien) 5 mg HS PRN PO 05/14/16 09:00 (Mag-Al Plus Susp Liq) 15 ml Q8H PRN PO 05/14/16 09:00 (Zofran Odt) 4 mg Q6H PRN PO 05/14/16 09:00 (Savage Rosenthal MD R1) Assessment/Plan Problem List: (1) 39 weeks gestation of Assessment and Plan 25 year old now PPD#1. 1. Care - AF, continue to monitor vital signs - Encouraged OOB, as tolerated - Motrin prn pain - Advised pelvic rest x 6 weeks - - Contraception: still considering options - Will f/u with Nelida Chappius for contraception following discharge from hospital and for care (Savage Rosenthal MD R1) Assessment and Plan Patient seen and examined. Agree with plan. (Norma Avila MD) Savage Rosenthal MD R1 May 15, 2016 08:26 Norma Avila MD May 15, 2016 09:22
[2016-05-15 09:19] LABS: AUTOMATED NEUTROPHIL # 14.9 TH/MM3 (1.8-7.7); BASOPHIL # 0.1 TH/MM3 (0-0.2); BASOPHIL % 0.4 % (0.0-2.0); EOSINOPHIL # 0.1 TH/MM3 (0-0.4); EOSINOPHIL % 0.6 % (0.0-4.0); HEMO FLAGS DIFF FINAL; LYMPH % 16.1 % (9.0-44.0); LYMPHOCYTE # 3.1 TH/MM3 (1.0-4.8); MEAN CELL VOLUME 88.1 FL (80.0-100.0); MEAN CORPUSCULAR HEMOGLOBIN 30.2 PG (27.0-34.0); MEAN CORPUSCULAR HGB CONC 34.3 % (32.0-36.0); MONO % 6.3 % (0.0-8.0); NEUT % 76.6 % (16.0-70.0); PLATELET COUNT 268 TH/MM3 (150-450); RED BLOOD COUNT 3.86 MIL/MM3 (4.00-5.30); RED CELL DISTRIBUTION WIDTH 14.3 % (11.6-17.2); WHITE BLOOD COUNT 19.4 TH/MM3 (4.0-11.0)
[2016-05-15 20:12] VITALS: BP 120/71; PULSE 59; RESP 15; TEMP 97.6
[2016-05-16] MEDS: oxyCODONE/ACETAMINOPHEN 5 MG/325 MG TAB PO PRN (07:59)
[2016-05-16 08:00] VITALS: BP 126/71; PULSE 71; RESP 18; TEMP 98.4
--- NOTE | 2016-05-16 08:35 | HHI.OB ---
Subjective Post Day: 2 Remarks Patient seen and examined this morning. No acute events overnight. AFVSS. She states her pain is well controlled and improving. Minimal vaginal bleeding. Denies breast tenderness. She states she is without issues. No issues ambulating. Denies fevers, chills, night sweats, chest pain, shortness of breath, calf pain. Objective Vitals/I&O Vital Signs Date Time Temp Pulse Resp B/P Pulse Ox O2 Delivery O2 Flow Rate FiO2 05/15/16 20:12 97.6 59 15 05/15/16 20:12 120/71 Objective Remarks GENERAL: Well-nourished, well-developed patient. CARDIOVASCULAR: Regular rate and rhythm without murmurs, gallops, or rubs. RESPIRATORY: Breath sounds equal bilaterally. No accessory muscle use. ABDOMEN/GI: Abdomen soft, non-tender. Fundus: Firm, non-tender at umbilicus. GENITOURINARY: Light to moderate bleeding. EXTREMITIES: No cyanosis or edema, non-tender, without signs of DVT. Medications and IVs Current Medications Medications (Trade) Dose Ordered Sig/Jaylene Route Start Time Stop Time Status Last Admin Lactated Ringer's 1,000 ml @ 125 mls/hr Q8H IV 05/14/16 01:45 05/14/16 08:15 Lactated Ringer's 1,000 ml @ 3,000 mls/hr Q20M PRN IV 05/14/16 01:45 (NS 1000 ml Inj) 1,000 ml @ 100 mls/hr Q10H PRN IV 05/14/16 02:05 (fentaNYL INJ) 50 mcg Q1H PRN IV PUSH 05/14/16 01:45 (fentaNYL INJ) 100 mcg Q1H PRN IV PUSH 05/14/16 01:45 05/14/16 03:35 Mineral Oil 10 ml 10 ml UNSCH PRN TOPICAL 05/14/16 01:45 Oxytocin 500 ml @ 0 mls/hr TITRATE IV 05/14/16 06:30 05/14/16 06:57 (fentaNYL 2MCG-BUPIV 0.125% INJ) 100 ml @ 0 mls/hr TITRATE EPIDURAL 05/14/16 07:00 (NS Flush) 2 ml BID IV 05/14/16 09:00 (NS Flush) 2 ml UNSCH PRN IV 05/14/16 09:00 (Tylenol) 650 mg Q4H PRN PO 05/14/16 09:00 (Percocet 5-325 Mg) 1 tab Q4H PRN PO 05/14/16 09:00 05/16/16 07:59 (Americaine 20% Top Spr) 1 spray Q4H PRN TOPICAL 05/14/16 09:00 (Tucks Pads) 1 applic QID PRN TOPICAL 05/14/16 09:00 05/16/16 08:00 (Mery-Colace) 2 tab Q12H PRN PO 05/14/16 09:00 (Ambien) 5 mg HS PRN PO 05/14/16 09:00 (Mag-Al Plus Susp Liq) 15 ml Q8H PRN PO 05/14/16 09:00 (Zofran Odt) 4 mg Q6H PRN PO 05/14/16 09:00 Assessment/Plan Problem List: (1) 39 weeks gestation of Assessment and Plan 25 year old now PPD#2. 1. Care - AFVSS - Encouraged OOB, as tolerated - Motrin prn pain - Advised pelvic rest x 6 weeks - - Contraception: still considering options - Will f/u with Nelida Chappius for contraception following discharge from hospital and for care dw Dr. Blanco and Savage Oconnell MD R1 May 16, 2016 08:35
--- NOTE | 2016-05-16 12:12 | HHI.DCPOC ---
Discharge Care Plan Diagnosis: (1) care following vaginal delivery Report Symptoms to Your Doctor -Temperate above 100.5 degrees -Redness, of incision or excessive or foul smelling drainage -Unusual pain or calf pain -Increased vaginal bleeding -Painful or difficulty urinating -Feelings of extreme sadness or anxiety after 2 weeks Goals to Promote Your Health * To prevent worsening of your condition and complications and to maintain your health at the optimal level follow up with your OB provider. Directions to Meet Your Goals Take your medications as prescribed Follow your dietary instruction Follow activity as directed Ensure plenty of rest for recovery Drink fluids for hydration Keep your appointments as scheduled Take your immunizations and boosters as scheduled If your symptoms worsen call your PCP, if no PCP go to Urgent Care Center or Emergency Room Smoking is Dangerous to Your Health. Avoid second hand smoke Call the 24-hour crisis hotline for domestic abuse at Savage Rosenthal MD R1 May 16, 2016 12:12
--- NOTE | 2016-05-16 14:48 | PD.CIRC ---
Circumcision Procedure Note Procedure Date: May 16, 2016 Procedure Time: 14:41 Procedure: Circumcision Pre-procedure diagnosis: circumcision Post-procedure diagnosis: circumcision Informed Consent: The risks, benefits, indications, potential complications, and alternatives were explained to the patient/family and informed consent obtained. The baby was brought to the procedure room where a time-out was done to ID the patient and the procedure. Performing Physician: Marleen Oquendo Anesthesia used: 1% lidocaine injected Type of block: dorsal penile block Device used: Gomco 1.3 Description: The baby was prepped and draped in a sterile fashion. The procedure followed standard technique. The baby tolerated the procedure well without complication. Estimated blood loss: minimal Specimen: No Marleen Leon MD May 16, 2016 14:48
[2016-05-26] MEDS ORDERED: ZOLO50TA PO (11:18)
[2016-05-26] MEDS ORDERED: SERT-132 PO (11:18)
== END 2016-05-16 15:46 | disposition home or self-care (01) | DRG 767 ==
LOC: HOBED 01:02 → H2EB 01:50 → H1EA 11:21
PROVIDERS: ADMIT Obstetrics & Gynecology Maternal & Fetal Medicine; ATTEND Obstetrics & Gynecology Maternal & Fetal Medicine
PROC: 10E0XZZ Delivery of Products of Conception, External Approach (ICD-10-PCS; principal; 2016-05-14)
PROC: 10D17ZZ Extraction of Products of Conception, Retained, Via Natural or Artificial Opening (ICD-10-PCS; 2016-05-14)
PROC: 10H07YZ Insertion of Other Device into Products of Conception, Via Natural or Artificial Opening (ICD-10-PCS; 2016-05-14)
PROC: 10907ZC Drainage of Amniotic Fluid, Therapeutic from Products of Conception, Via Natural or Artificial Opening (ICD-10-PCS; 2016-05-14)
PROC: 3E0S3CZ (ICD-10-PCS; 2016-05-14)
PROC: 00HU33Z Insertion of Infusion Device into Spinal Canal, Percutaneous Approach (ICD-10-PCS; 2016-05-14)
DX: O73.0 Retained placenta without hemorrhage (principal); Z37.0 Single live birth; O99.331 Smoking (tobacco) complicating pregnancy, first trimester; Z3A.39 39 weeks gestation of pregnancy
CPT/HCPCS: 59025; 81001; 83030; 85025; 86850; 86900; 86901; 90384; 99285; J2590; J2790; J3010; J7120

== ENCOUNTER 2017-03-25 23:47 | Inpatient (IN) | payer SELFPAY ==
[~2017-03-25] VITALS: Ht 170.2 cm; Wt 89.0 kg
[~2017-03-25 23:47] MED LIST changes: +SERT-132 PO; +ZOLO50TA PO
[2017-03-25] MEDS ORDERED: LIDOCAINE HCL 1% 20 ML VIAL ONE (23:54)
[2017-03-25] MEDS ORDERED: OXYTOCIN 30 UNITS-500ML PREMIX 500 ML ONE (23:54)
[2017-03-25] MEDS ORDERED: fentaNYL 2MCG-BUPIV 0.125% INJ 100 ML ONE (23:56)
[2017-03-25 23:59] VITALS: BP 154/133; PULSE 129
[2017-03-26] VITALS (13 sets, daily range): BP systolic 101–135; BP diastolic 63–85; PULSE 67–91; RESP 16–18; TEMP 97.7–97.9
[2017-03-26] MEDS ORDERED: MORPHINE SULFATE 2 MG/ML INJ ONE (00:07)
[2017-03-26] MEDS ORDERED: SODIUM CHLORID 0.9% 500 ML INJ 500 ML IV PRN (00:15)
[2017-03-26] MEDS ORDERED: WITCH HAZEL 50%/GLYCERIN 12.5% 40 PAD JAR TOPICAL PRN (00:15)
[2017-03-26] MEDS ORDERED: ACETAMINOPHEN 325 MG TAB PO PRN (00:15)
[2017-03-26] MEDS ORDERED: LACTATED RINGER'S 1000 ML INJ 1,000 ML IV SCH (00:15)
[2017-03-26] MEDS ORDERED: DOCUSATE SODIUM 50 MG/SENNA 8.6 MG TAB PO PRN (00:15)
[2017-03-26] MEDS ORDERED: OXYTOCIN 30 UNITS-500ML PREMIX 500 ML IV ONE (00:15)
[2017-03-26] MEDS ORDERED: LIDOCAINE HCL 1% 50 ML VIAL INFIL PRN (00:15)
[2017-03-26] MEDS ORDERED: LIDOCAINE HCL 1% 50 ML VIAL I-DERMAL PRN (00:15)
[2017-03-26] MEDS ORDERED: MINERAL OIL 10 ML VIAL TOPICAL PRN (00:15)
[2017-03-26] MEDS ORDERED: ALUMINUM/MAGNESIUM/SIMETH 30 ML CUP PO PRN (00:15)
[2017-03-26] MEDS ORDERED: OXYTOCIN 30 UNITS-500ML PREMIX 500 ML IV SCH (00:15)
[2017-03-26] MEDS ORDERED: BENZOCAINE 20% TOPICAL SPRAY 60 ML CAN TOPICAL PRN (00:15)
[2017-03-26] MEDS ORDERED: LACTATED RINGER'S 1000 ML INJ 1,000 ML IV PRN (00:15)
[2017-03-26] MEDS ORDERED: ONDANSETRON ODT 4 MG TAB PO PRN (00:15)
[2017-03-26] MEDS ORDERED: ZOLPIDEM TARTRATE 5 MG TAB PO PRN (00:15)
--- NOTE | 2017-03-26 00:25 | PD ---
HPI Chief Complaint ctx Date Seen: Mar 26, 2017 Time Seen: 23:50 Travel History International Travel<30 Days: No Contact w/Intl Traveler<30Days: No Known Affected Area: No History of Present Illness HPI 26y/o @ approximately 33wks. No PNC. 10m . She states that she thought her water broke in the shower this morning. Contractions started this evening. She presented to triage complete, +3. She was urgently taken to a delivery room and had a precipitous delivery. Weeks Gestation: 33 Para: 1 : 2 History Past Medical History Narrative Medical depression Obstetric History Obstetric History 1. , 7lbs 11oz 2. current, no PNC Past Surgical History Surgical History: No Previous Surgery Family History Family History: Negative Social History Alcohol Use: No Tobacco Use: No Substance Abuse: No Allergies-Medications (Allergen,Severity, Reaction): Coded Allergies: diclofenac (Unverified Allergy, Severe, Hives, SOB, 10/17/16) etodolac (Unverified Allergy, Severe, Hives, SOB, 10/17/16) flurbiprofen (Unverified Allergy, Severe, Hives, SOB, 10/17/16) ibuprofen (Unverified Allergy, Severe, Hives, SOB, 10/17/16) indomethacin (Unverified Allergy, Severe, Hives, SOB, 10/17/16) ketoprofen (Unverified Allergy, Severe, Hives, SOB, 10/17/16) ketorolac (Unverified Allergy, Severe, Hives, SOB, 10/17/16) naproxen (Unverified Allergy, Severe, Hives, SOB, 10/17/16) oxaprozin (Unverified Allergy, Severe, Hives, SOB, 10/17/16) Home Meds Active Scripts Sertraline (Sertraline) 50 Mg Tab, 50 MG PO DAILY, #30 TAB 3 Refills Prov:Nenita Levine 05/26/16 Sertraline (Zoloft) 50 Mg Tab, 50 MG PO DAILY, #30 TAB 0 Refills Prov:Nenita Levine 05/26/16 Reported Medications Without A W/ Fe Carbo (Prenate Mini 29-0.6-0.4-350 mg) 1 Cap Cap, PO 02/15/16 Review of Systems Except as stated in HPI: all other systems reviewed are Neg Physical Exam Narrative General: well developed, well nourished, no acute distress HEENT: normocephalic atraumatic, extraocular movements intact, neck supple Abdomen: soft, gravid, nontender, nondistended Extremities: full range of motion Skin: normal coloration, no rashes, no suspicious skin lesions noted Neurologic: cranial nerves 2-12 grossly intact, normal muscle tone, normal gait Psychiatric: normal mood and affect, appropriate FHTs: present 180s Cvx: 10/100/+3, complete breech Data Data Vital Signs Reviewed: Yes Orders Orders Oxytocin 30 Units-500ml Premix (Pitocin (03/25/17 23:54) Lidocaine 1% Inj (Xylocaine 1% Inj) (03/25/17 23:54) Fentanyl 2mcg-Bupiv 0.125% Inj (Fentanyl (03/25/17 23:56) Morphine Inj (Morphine Inj) (03/26/17 00:07) Vital Signs (Adult) .ON ADMISSION (03/26/17 00:15) ^ Labor Status (03/26/17 00:15) ^ Non Stress Test (03/26/17 00:15) Admit To Inpatient (03/26/17 ) Vital Signs (Adult) .Per protocol (03/26/17 00:15) Heart (03/26/17 00:15) Amnioinfusion (03/26/17 00:15) Urinary Catheter Management .ONCE (03/26/17 00:15) Lactated Ringer's 1000 Ml Inj (Lr 1000 M (03/26/17 00:15) Lactated Ringer's 1000 Ml Inj (Lr 1000 M (03/26/17 00:15) Sodium Chlorid 0.9% 500 Ml Inj (Ns 500 M (03/26/17 00:15) Sodium Chlor 0.9% 1000 Ml Inj (Ns 1000 M (03/26/17 00:35) Lidocaine 1% Inj (50 Ml) (Xylocaine 1% I (03/26/17 00:15) Complete Blood Count With Diff (03/26/17 00:15) Hold Clot (03/26/17 00:15) Abo/Rh Blood Type (03/26/17 00:15) Urinalysis - C+S If Indicated (03/26/17 00:15) Drug Screen, Random Urine (03/26/17 00:15) Type And Screen (03/26/17 00:15) Rapid Plasma Regin (Rpr) W Ttr (03/26/17 00:15) Hepatitis Profile (03/26/17 00:15) No Care Spec Serology (03/26/17 00:15) Resp Oxygen Non Rebreathe Mask (03/26/17 ) ^ Epidural / Intrathecal Infus (03/26/17 00:15) Oxytocin 30 Units-500ml Premix (Pitocin (03/26/17 00:15) Lidocaine 1% Inj (50 Ml) (Xylocaine 1% I (03/26/17 00:15) Light Mineral Oil (Muri-Lube Oil) (03/26/17 00:15) Inpatient Certification (03/26/17 ) Vital Signs (Adult) .QSHIFT (03/26/17 00:15) Activity Oob Ad Yelena (03/26/17 00:15) Ice / Cold Pack PRN (03/26/17 00:15) Discontinue Iv (03/26/17 00:15) Sitz Bath PRN (03/26/17 00:15) ^ Massage (03/26/17 00:15) ^ Rhogam (03/26/17 00:15) Urinary Catheter Management .PRN (03/26/17 00:15) Diet Regular Basic (03/26/17 Breakfast) Oxytocin 30 Units-500ml Premix (Pitocin (03/26/17 00:15) Acetaminophen (Tylenol) (03/26/17 00:15) Benzocaine 20% Top Spr (Americaine 20% T (03/26/17 00:15) Witch Leanne-Glycerin Pad (Tucks Pads) (03/26/17 00:15) Docusate Sodium-Senna (Mery-Colace) (03/26/17 00:15) Zolpidem (Ambien) (03/26/17 00:15) Nhtydku-Tgbgb-Ppzplfa Inj (M-M-R Ii Inj) (03/26/17 16:00) Nurn-Fjt-Puwbsy (Booster) Inj (Boostrix (03/26/17 16:00) Al-Mag Hy-Si 40-40-4 Mg/Ml Liq (Mag-Al P (03/26/17 00:15) Ondansetron Odt (Zofran Odt) (03/26/17 00:15) MDM Plan 26y/o @ approximately 33wks complete and breech. -- to L&D room stat -- all labs -- pt counseled on breech delivery vs. stat but breech 4+ and foot delivering Diagnosis Diagnosis: Primary Impression: 33 weeks gestation of Additional Impressions: No care in current Breech presentation at Uterine contractions during Mely Diop MD Mar 26, 2017 00:25
--- NOTE | 2017-03-26 00:26 | PD ---
History of Present Illness History of Present Illness HPI Chief Complaint ctx Date Seen: Mar 26, 2017 Time Seen: 23:50 Travel History International Travel<30 Days: No Contact w/Intl Traveler<30Days: No Known Affected Area: No History of Present Illness HPI 26y/o @ approximately 33wks. No PNC. 10m . She states that she thought her water broke in the shower this morning. Contractions started this evening. She presented to triage complete, +3. She was urgently taken to a delivery room and had a precipitous delivery. Weeks Gestation: 33 Para: 1 : 2 History (Limited) History Past Medical History Narrative Medical depression Obstetric History Obstetric History 1. , 7lbs 11oz 2. current, no PNC Past Surgical History Surgical History: No Previous Surgery Family History Family History: Negative Social History Alcohol Use: No Tobacco Use: No Substance Abuse: No Allergies-Medications Allergies-Medications (Allergen,Severity, Reaction): Coded Allergies: diclofenac (Unverified Allergy, Severe, Hives, SOB, 10/17/16) etodolac (Unverified Allergy, Severe, Hives, SOB, 10/17/16) flurbiprofen (Unverified Allergy, Severe, Hives, SOB, 10/17/16) ibuprofen (Unverified Allergy, Severe, Hives, SOB, 10/17/16) indomethacin (Unverified Allergy, Severe, Hives, SOB, 10/17/16) ketoprofen (Unverified Allergy, Severe, Hives, SOB, 10/17/16) ketorolac (Unverified Allergy, Severe, Hives, SOB, 10/17/16) naproxen (Unverified Allergy, Severe, Hives, SOB, 10/17/16) oxaprozin (Unverified Allergy, Severe, Hives, SOB, 10/17/16) Home Meds Active Scripts Sertraline (Sertraline) 50 Mg Tab, 50 MG PO DAILY, #30 TAB 3 Refills Prov:Nenita Levine 05/26/16 Sertraline (Zoloft) 50 Mg Tab, 50 MG PO DAILY, #30 TAB 0 Refills Prov:Nenita Levine 05/26/16 Reported Medications Without A W/ Fe Carbo (Prenate Mini 29-0.6-0.4-350 mg) 1 Cap Cap, PO 02/15/16 ROS Review of Systems Except as stated in HPI: all other systems reviewed are Neg Physical Exam Physical Exam Narrative General: well developed, well nourished, no acute distress HEENT: normocephalic atraumatic, extraocular movements intact, neck supple Abdomen: soft, gravid, nontender, nondistended Extremities: full range of motion Skin: normal coloration, no rashes, no suspicious skin lesions noted Neurologic: cranial nerves 2-12 grossly intact, normal muscle tone, normal gait Psychiatric: normal mood and affect, appropriate FHTs: present 180s Cvx: 10/100/+3, complete breech Data Data Data Vital Signs Reviewed: Yes Orders Orders Oxytocin 30 Units-500ml Premix (Pitocin (03/25/17 23:54) Lidocaine 1% Inj (Xylocaine 1% Inj) (03/25/17 23:54) Fentanyl 2mcg-Bupiv 0.125% Inj (Fentanyl (03/25/17 23:56) Morphine Inj (Morphine Inj) (03/26/17 00:07) Vital Signs (Adult) .ON ADMISSION (03/26/17 00:15) ^ Labor Status (03/26/17 00:15) ^ Non Stress Test (03/26/17 00:15) Admit To Inpatient (03/26/17 ) Vital Signs (Adult) .Per protocol (03/26/17 00:15) Heart (03/26/17 00:15) Amnioinfusion (03/26/17 00:15) Urinary Catheter Management .ONCE (03/26/17 00:15) Lactated Ringer's 1000 Ml Inj (Lr 1000 M (03/26/17 00:15) Lactated Ringer's 1000 Ml Inj (Lr 1000 M (03/26/17 00:15) Sodium Chlorid 0.9% 500 Ml Inj (Ns 500 M (03/26/17 00:15) Sodium Chlor 0.9% 1000 Ml Inj (Ns 1000 M (03/26/17 00:35) Lidocaine 1% Inj (50 Ml) (Xylocaine 1% I (03/26/17 00:15) Complete Blood Count With Diff (03/26/17 00:15) Hold Clot (03/26/17 00:15) Abo/Rh Blood Type (03/26/17 00:15) Urinalysis - C+S If Indicated (03/26/17 00:15) Drug Screen, Random Urine (03/26/17 00:15) Type And Screen (03/26/17 00:15) Rapid Plasma Regin (Rpr) W Ttr (03/26/17 00:15) Hepatitis Profile (03/26/17 00:15) No Care Spec Serology (03/26/17 00:15) Resp Oxygen Non Rebreathe Mask (03/26/17 ) ^ Epidural / Intrathecal Infus (03/26/17 00:15) Oxytocin 30 Units-500ml Premix (Pitocin (03/26/17 00:15) Lidocaine 1% Inj (50 Ml) (Xylocaine 1% I (03/26/17 00:15) Light Mineral Oil (Muri-Lube Oil) (03/26/17 00:15) Inpatient Certification (03/26/17 ) Vital Signs (Adult) .QSHIFT (03/26/17 00:15) Activity Oob Ad Yelena (03/26/17 00:15) Ice / Cold Pack PRN (03/26/17 00:15) Discontinue Iv (03/26/17 00:15) Sitz Bath PRN (03/26/17 00:15) ^ Massage (03/26/17 00:15) ^ Rhogam (03/26/17 00:15) Urinary Catheter Management .PRN (03/26/17 00:15) Diet Regular Basic (03/26/17 Breakfast) Oxytocin 30 Units-500ml Premix (Pitocin (03/26/17 00:15) Acetaminophen (Tylenol) (03/26/17 00:15) Benzocaine 20% Top Spr (Americaine 20% T (03/26/17 00:15) Witch Leanne-Glycerin Pad (Tucks Pads) (03/26/17 00:15) Docusate Sodium-Senna (Mery-Colace) (03/26/17 00:15) Zolpidem (Ambien) (03/26/17 00:15) Mewfove-Uldcy-Vbunykm Inj (M-M-R Ii Inj) (03/26/17 16:00) Eqad-Lms-Xopvis (Booster) Inj (Boostrix (03/26/17 16:00) Al-Mag Hy-Si 40-40-4 Mg/Ml Liq (Mag-Al P (03/26/17 00:15) Ondansetron Odt (Zofran Odt) (03/26/17 00:15) MDM MDM Plan 26y/o @ approximately 33wks complete and breech. -- to L&D room stat -- all labs -- pt counseled on breech delivery vs. stat but breech 4+ and foot delivering Diagnosis Diagnosis: Primary Impression: 33 weeks gestation of Additional Impressions: No care in current Breech presentation at Uterine contractions during Mely iDop MD Mar 26, 2017 00:26
[2017-03-26 00:28] LABS: AUTOMATED NEUTROPHIL # 19.3 TH/MM3 (1.8-7.7); BASOPHIL # 0.1 TH/MM3 (0-0.2); BASOPHIL % 0.3 % (0.0-2.0); EOSINOPHIL # 0.1 TH/MM3 (0-0.4); EOSINOPHIL % 0.4 % (0.0-4.0); HEMATOCRIT 34.5 % (35.0-46.0); HEMOGLOBIN 11.4 GM/DL (11.6-15.3); LYMPH % 10.7 % (9.0-44.0); LYMPHOCYTE # 2.5 TH/MM3 (1.0-4.8); MEAN CELL VOLUME 86.9 FL (80.0-100.0); MEAN CORPUSCULAR HEMOGLOBIN 28.8 PG (27.0-34.0); MEAN CORPUSCULAR HGB CONC 33.1 % (32.0-36.0); MEAN PLATELET VOLUME 7.3 FL (7.0-11.0); MONO % 7.1 % (0.0-8.0); MONOCYTE # 1.7 TH/MM3 (0-0.9); NEUT % 81.5 % (16.0-70.0); PLATELET COUNT 366 TH/MM3 (150-450); RED BLOOD COUNT 3.97 MIL/MM3 (4.00-5.30); RED CELL DISTRIBUTION WIDTH 13.7 % (11.6-17.2); WHITE BLOOD COUNT 23.6 TH/MM3 (4.0-11.0)
--- NOTE | 2017-03-26 00:29 | PD.OB.DELI ---
Weeks gestation: 33 Pt started active labor?: Yes Medical induction of labor?: No Anesthesia: None Episiotomy: None Vaginal Delivery: Normal, Spontaneous Presentation: Breech (complete breech, left sacrum anterior) Nuchal Cord: None Delayed cord clamping (45 sec): Yes (30 sec) Infant: Female Delivery date: Mar 26, 2017 Delivery time: 00:04 One Minute : 8 Five Minute : 9 Weight: 2040g Placenta: Spontaneous delivery, Intact, 3 vessel cord, Cord pH (7.40) Laceration: Episiotomy Estimated blood loss: 100cc Mely Diop MD Mar 26, 2017 00:29
[2017-03-26] MEDS ORDERED: SODIUM CHLOR 0.9% 1000 ML INJ 1,000 ML IV PRN (00:35)
[2017-03-26 00:56] LABS: AMORPHOUS SEDIMENT, URINE RARE; BILIRUBIN, URINE NEG (NEG); BLOOD, URINE NEG (NEG); GLUCOSE,URINE NEG (NEG); KETONE, URINE 40 mg/dL (NEG); MUCUS URINE FEW /lpf (OCC); NITRITE,URINE NEG (NEG); PH, URINE 6.5 (5.0-8.5); URINE COLOR YELLOW (YELLW/STRAW); URINE LEUKOCYTE ESTERASE NEG (NEG)
--- NOTE | 2017-03-26 08:20 | HHI.OB ---
Subjective Post Day: 0 Remarks Ms. Israel is a 26 yo who is PPD 0 from 03/26 at 0004. Ms. Israel was afebrile with stable vital signs overnight. Patient reports that her pain is currently controlled. Mild vaginal bleeding. Patient has been ambulating well. Patient passing gas normally; no voiding concerns. Patient does not report any chest pain, shortness of breath, leg swelling, or other concerns. Patient plans to bottle feed. Objective Vitals/I&O Vital Signs Date Time Temp Pulse Resp B/P (MAP) Pulse Ox O2 Delivery O2 Flow Rate FiO2 03/26/17 08:00 68 16 122/71 (88) 03/26/17 08:00 97.7 03/26/17 01:46 80 122/82 (95) 03/26/17 01:45 18 03/26/17 01:30 81 18 122/74 (90) 03/26/17 01:15 67 18 124/76 (92) 03/26/17 01:01 69 101/80 (87) 03/26/17 01:00 18 03/26/17 01:00 97.9 03/26/17 00:45 81 127/85 (99) 03/26/17 00:45 18 03/26/17 00:31 84 121/77 (92) 03/26/17 00:30 18 03/26/17 00:21 91 135/82 (99) 03/26/17 00:15 18 03/26/17 00:07 88 116/63 (80) 03/25/17 23:59 129 154/133 (140) Objective Remarks GENERAL: Well-nourished, well-developed patient. CARDIOVASCULAR: Regular rate and rhythm without murmurs RESPIRATORY: CTAB; normal rate ABDOMEN/GI: Abdomen soft, non-tender. Fundus: Firm, non-tender at umbilicus. GENITOURINARY: Light to moderate bleeding. EXTREMITIES: No cyanosis or edema, non-tender, without signs of DVT. Medications and IVs Current Medications Medications (Trade) Dose Ordered Sig/Jaylene Route Start Time Stop Time Status Last Admin Lactated Ringer's 1,000 ml @ 125 mls/hr Q8H IV 03/26/17 00:15 03/26/17 00:15 Lactated Ringer's 1,000 ml @ 3,000 mls/hr Q20M PRN IV 03/26/17 00:15 Sodium Chloride 500 ml @ 1,000 mls/hr ONCE PRN IV 03/26/17 00:15 Sodium Chloride 1,000 ml @ 100 mls/hr Q10H PRN IV 03/26/17 00:35 (Xylocaine 1% Inj (50 ml)) 0.1 ml UNSCH X1 PRN I-DERMAL 03/26/17 00:15 03/29/17 00:14 (Xylocaine 1% Inj (50 ml)) 10 ml UNSCH X1 PRN INFIL 03/26/17 00:15 03/28/17 00:14 (Muri-Lube Oil) 10 ml UNSCH PRN TOPICAL 03/26/17 00:15 (Tylenol) 650 mg Q4H PRN PO 03/26/17 00:15 (Americaine 20% Top Spr) 1 spray Q4H PRN TOPICAL 03/26/17 00:15 03/26/17 02:46 (Tucks Pads) 1 applic QID PRN TOPICAL 03/26/17 00:15 03/26/17 02:46 (Mery-Colace) 2 tab Q12H PRN PO 03/26/17 00:15 (Ambien) 5 mg HS PRN PO 03/26/17 00:15 (M-M-R Ii Inj) 0.5 ml ONCE ONCE SQ 03/26/17 16:00 03/26/17 16:01 (Boostrix Inj) 0.5 ml ONCE ONCE IM 03/26/17 16:00 03/26/17 16:01 (Mag-Al Plus Susp Liq) 15 ml Q8H PRN PO 03/26/17 00:15 (Zofran Odt) 4 mg Q6H PRN PO 03/26/17 00:15 Assessment/Plan Problem List: (1) care following vaginal delivery ICD Codes: Z39.2 - Encounter for routine follow-up Status: Acute Plan: Ms. Israel is a 26 yo who is PPD 0 from 03/26 at 0004\ -Continue routine post- care -Monitor vaginal bleeding, monitor vital signs -PRN pain control -Continue to encourage ambulation -Will plan for Mery-colace for stool softening -Patient requests Depot Provera for control O negative blood -Will give Rhogam post- Poly-substance abuse Impression: Limited care. Urine drug screen positive for opiates, amphetamines, cannabinoids -Will monitor labs for infectious diseases (HIV negative, Hep panel pending) -Bottle feeding -DCF notified Piotr Mae MD, R3 Mar 26, 2017 08:20
[2017-03-26 11:18] LABS: HEPATITIS A AB IGM NEGATIVE (NEGATIVE); HEPATITIS B CORE AB IGM NEGATIVE (NEGATIVE); HEPATITIS B SURFACE ANTIGEN NEGATIVE (NEGATIVE); HEPATITIS C AB IgG NEGATIVE (NEGATIVE)
--- NOTE | 2017-03-26 14:44 | HHI.DCPOC ---
Discharge Care Plan Diagnosis: (1) delivery (2) Vaginal delivery (3) Breech presentation at (4) No care in current Your Health Problems Are: Vaginal delivery Report Symptoms to Your Doctor -Temperature above 100.5 degrees -Redness, of incision or excessive or foul smelling drainage -Unusual pain or calf pain -Increased vaginal bleeding -Painful or difficulty urinating -Feelings of extreme sadness or anxiety after 2 weeks Goals to Promote Your Health * To prevent worsening of your condition and complications * To maintain your health at the optimal level Directions to Meet Your Goals Take your medications as prescribed Follow your dietary instruction Follow activity as directed Ensure plenty of rest for recovery Drink fluids for hydration Keep your appointments as scheduled Take your immunizations and boosters as scheduled If your symptoms worsen call your PCP, if no PCP go to Urgent Care Center or Emergency Room Smoking is Dangerous to Your Health. Avoid second hand smoke Call the 24-hour crisis hotline for domestic abuse at Ann Nelson MD R1 Mar 26, 2017 14:44
[2017-03-26] MEDS ORDERED: MEASLES, MUMPS, RUBELLA VACCINE 0.5 ML VIAL SQ ONE (16:00)
[2017-03-26] MEDS ORDERED: DIPHTH/TETANUS/ACEL PERTUSSIS (BOOSTER) 0.5 ML VIAL/PFS IM ONE (16:00)
== END 2017-03-26 18:30 | disposition home or self-care (01) | DRG 775 ==
LOC: HOBED 23:47 → H2EB 23:51 → H1EA 03-26 02:10
PROVIDERS: ADMIT Obstetrics & Gynecology; ATTEND Obstetrics & Gynecology
PROC: 10E0XZZ Delivery of Products of Conception, External Approach (ICD-10-PCS; principal; 2017-03-26)
PROC: 0W8NXZZ Division of Female Perineum, External Approach (ICD-10-PCS; 2017-03-26)
DX: O32.1XX0 Maternal care for breech presentation, not applicable or unspecified (principal); O60.14X0 Preterm labor third trimester with preterm delivery third trimester, not applicable or unspecified; O99.323 Drug use complicating pregnancy, third trimester; F19.10 Other psychoactive substance abuse, uncomplicated; O62.3 Precipitate labor; O09.33 Supervision of pregnancy with insufficient antenatal care, third trimester; Z37.0 Single live birth; Z3A.33 33 weeks gestation of pregnancy
CPT/HCPCS: 80074; 80307; 81001; 82805; 83030; 85025; 85461; 86592; 86703; 86850; 86900; 86901; 88307; 90384; 99285; J2270; J2590; J2790; J7120

== ENCOUNTER 2017-04-15 15:17 | Emergency (ER) | payer MEDICAID, OTHER ==
[~2017-04-15] VITALS: Ht 170.2 cm; Wt 77.0 kg
[~2017-04-15 15:17] MED LIST changes: -SERT-132 PO
[2017-04-15 15:21] VITALS: BP 157/76; PULSE 101; RESP 16; TEMP 98.3; O2SAT 97
[2017-04-15] MEDS ORDERED: ACETAMINOPHEN 325 MG TAB PO ONE (16:15)
--- NOTE | 2017-04-15 16:15 | PD ---
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 Denies any trauma misstep or fall. Denies any heavy lifting. Additionally reports pelvic pain for the last 3-4 days. Reports normal urination. Denies any nausea or vomiting. Stools mildly loose. Vaginal 3 weeks ago with mild bleeding at this time. Denies sexual activity. She is not breast-feeding. [facility] Past Medical History Medical History: Denies Significant Hx Diminished Hearing: No Immunizations Current: Yes Tetanus Vaccination: < 5 Years Influenza Vaccination: Yes ?: Not : 2 Para: 2 Social History Alcohol Use: No Tobacco Use: Yes (03/08 PPD) Substance Use: No Allergies-Medications (Allergen,Severity, Reaction): Coded Allergies: diclofenac (Unverified Allergy, Severe, Hives, SOB, 04/15/17) etodolac (Unverified Allergy, Severe, Hives, SOB, 04/15/17) flurbiprofen (Unverified Allergy, Severe, Hives, SOB, 04/15/17) ibuprofen (Unverified Allergy, Severe, Hives, SOB, 04/15/17) indomethacin (Unverified Allergy, Severe, Hives, SOB, 04/15/17) ketoprofen (Unverified Allergy, Severe, Hives, SOB, 04/15/17) ketorolac (Unverified Allergy, Severe, Hives, SOB, 04/15/17) naproxen (Unverified Allergy, Severe, Hives, SOB, 04/15/17) oxaprozin (Unverified Allergy, Severe, Hives, SOB, 04/15/17) Reported Meds & Prescriptions Reported Meds & Active Scripts Active No Active Prescriptions or Reported Medications Review of Systems General / Constitutional: No: Fever Eyes: No: Visual changes HENT: No: Headaches Cardiovascular: No: Chest Pain or Discomfort Respiratory: No: Shortness of Breath Gastrointestinal: Positive: Abdominal Pain Genitourinary: No: Dysuria Musculoskeletal: Positive: Pain Skin: No Rash Neurologic: No: Weakness Psychiatric: No: Depression Endocrine: No: Polydipsia Hematologic/Lymphatic: No: Easy Bruising Physical Exam Narrative GENERAL: Well-nourished, well-developed patient. SKIN: Focused skin assessment warm/dry. HEAD: Normocephalic. EYES: No scleral icterus. No injection or drainage. NECK: Supple, trachea midline. No JVD or lymphadenopathy. CARDIOVASCULAR: Regular rate and rhythm without murmurs, gallops, or rubs. RESPIRATORY: Breath sounds equal bilaterally. No accessory muscle use. GASTROINTESTINAL: Abdomen soft, diffusely tender left lower quadrant no guarding or rebound tenderness, nondistended. MUSCULOSKELETAL: No cyanosis, or edema. BACK: Nontender without obvious deformity. No CVA tenderness. Examination of thoracic spine reveals mild midline tenderness with bilateral paraspinous pain, good upper extremity strength Data Data Last Documented VS Vital Signs Date Time Temp Pulse Resp B/P (MAP) Pulse Ox O2 Delivery O2 Flow Rate FiO2 04/15/17 15:21 98.3 101 16 157/76 (103) 97 Orders Orders Us Pelvis Comp Business Analytics Director/Non-Preg (04/15/17 ) Acetaminophen (Tylenol) (04/15/17 16:15) Urinalysis - C+S If Indicated (04/15/17 16:20) Labs Laboratory Tests Test 04/15/17 16:20 Urine Collection Type CLEAN CATCH Urine Color YELLOW Urine Turbidity H Urine pH 6.0 Urine Specific [place] 1.022 Urine Protein 100 mg/dL Urine Glucose (UA) NEG mg/dL Urine Ketones NEG mg/dL Urine Occult Blood MOD Urine Nitrite NEG Urine Bilirubin NEG Urine Leukocyte Esterase NEG Urine RBC 20-24 /hpf Urine Squamous Epithelial Cells 6-8 /hpf Urine Transitional Epithelial Cells 0-5 /hpf Urine Amorphous Sediment MOD Urine Hyaline Casts 0-2 /lpf Urine Mucus MANY /lpf Microscopic Urinalysis Comment CULT NOT INDICATED MDM Medical Decision Making Medical Screen Exam Complete: Yes Emergency Medical Condition: Yes Differential Diagnosis Ovarian torsion, thoracic musculoskeletal pain, uterine cramping, ovarian cyst Narrative Course Assessment and plan discussed patient bedside. Diagnosis Primary Impression: Thoracic back pain Qualified Codes: M54.6 - Pain in thoracic spine Additional Impression: Ovarian cyst Qualified Codes: N83.201 - Unspecified ovarian cyst, right side Patient Instructions: General Instructions Additional Instructions: Encouraged Tylenol warm heat and gentle stretching and strengthening and massage for back pain. Encouraged warm heat for ovarian cyst. Return to the emergency room with any onset of new symptoms. 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
[2017-04-15 16:31] LABS: BILIRUBIN, URINE NEG (NEG); BLOOD, URINE MOD (NEG); GLUCOSE,URINE NEG (NEG); KETONE, URINE NEG (NEG); NITRITE,URINE NEG (NEG); URINE LEUKOCYTE ESTERASE NEG (NEG)
[2017-04-15 16:45] LABS: URINE COLOR YELLOW (YELLW/STRAW)
[2017-04-15 16:46] LABS: HYALINE CAST, URINE 0-2 /lpf (RARE); MUCUS URINE MANY /lpf (OCC); TRANSITIONAL EPI CELLS, URINE 0-5 /hpf
[2017-04-15 16:47] LABS: AMORPHOUS SEDIMENT, URINE MOD
--- NOTE | 2017-04-15 17:34 | RADRPT ---
EXAM DATE/TIME: 04/15/2017 16:53 [place] COMPARISON: No previous studies available for comparison. INDICATIONS : Three weeks post , pelvic and upper back pain. MEDICAL HISTORY : Pelvic and upper back pain. SURGICAL HISTORY : None. ENCOUNTER: Initial ACUITY: 2 days PAIN SCORE: 9/10 LOCATION: Bilateral pelvis MEASUREMENTS: UTERUS: 10.7 x 8.5 x 6.5 cm ENDOMETRIAL STRIPE: 7 mm RIGHT OVARY: 2.9 x 2.8 x 2.2 cm LEFT OVARY: 3.2 x 1.2 x 1.2 cm cm FINDINGS: UTERUS: The myometrium has homogeneous echotexture without mass. Suggestion of a slitlike area of fluid in t he endometrial cavity with no retained products of conception RIGHT OVARY: Contains a 1.1 cm cyst LEFT OVARY: Ovary contains no mass or significant cystic lesion. Absent arterial flow of indeterminate significa nce MISCELLANEOUS: No free fluid. CONCLUSION: Slitlike fluid in the endometrial cavity which is otherwise normal. 1.1 cm right ovary cyst. Absence of arterial flow to the left ovary of indeterm inate significance Juan Carlos Singh MD on April 15, 2017 at 17:30 Board Certified Radiologist. This report was verified electronically.
[2017-04-15] MEDS ORDERED: CYCL10TA PO (17:51)
[2017-04-15] MEDS ORDERED: HYDR-3516 PO (17:51)
[2017-04-15 17:59] VITALS: BP 147/89
== END 2017-04-15 18:00 | disposition home or self-care (01) ==
LOC: PHED 15:17
DX: M54.6 Pain in thoracic spine (principal); N83.201 Unspecified ovarian cyst, right side; F17.210 Nicotine dependence, cigarettes, uncomplicated; Z88.6 Allergy status to analgesic agent
CPT/HCPCS: 76856; 81001